=== PATIENT | female | born 1950 | race Asian ===

== ENCOUNTER → 2023-12-24 07:58 | Outpatient (REF) | payer OTHER, SELFPAY | LOC: DHCBS HW 07:58 | PROVIDERS: ATTENDING PHYSICIAN Nuclear Medicine Nuclear Cardiology; FAMILY PHYSICIAN Internal Medicine | DX: I25.10 Atherosclerotic heart disease of native coronary artery without angina pectoris (principal); I35.1 Nonrheumatic aortic (valve) insufficiency | CPT/HCPCS: 93306 ==